=== PATIENT | female | born 1995 | race Caucasian/White ===

== ENCOUNTER 2017-01-04 20:04 | Emergency (ER) | payer OTHER ==
[2017-01-04] MEDS ORDERED: ONDANSETRON 4 MG/2 ML VIAL ONE (20:58)
[2017-01-04] MEDS ORDERED: ONDANSETRON 4 MG/2 ML VIAL IVP ONE ×2 (21:05→21:41)
[2017-01-04] MEDS ORDERED: NORMAL SALINE 10 ML SYRINGE FLUSH IVP PRN (21:05)
[2017-01-04] MEDS ORDERED: Sodium Chloride 0.9% 1,000 ML PRIMARY IV ONE (21:05)
[2017-01-04 21:14] LABS: BASOPHILS # (AUTO) 0.01 10*3/UL; BASOPHILS % (AUTO) 0.2 % (0-1); EOSINOPHILS # (AUTO) 0 10*3/UL; EOSINOPHILS % (AUTO) 0 % (0-8); HEMATOCRIT 41.9 % (37.0-47.0); HEMOGLOBIN 13.7 g/dL (12.0-16.0); LYMPHOCYTES # (AUTO) 0.82 10*3/uL; MEAN CORPUSCULAR HEMOGLOBIN 25.1 PG (27-31); MEAN CORPUSCULAR HGB CONC 32.7 g/dL (33-37); MEAN CORPUSCULAR VOLUME 76.7 FL (81-99); MEAN PLATELET VOLUME 10.4 FL (7.4-12.2); MONOCYTES # (AUTO) 0.27 10*3/UL (0.3-0.8); MONOCYTES % (AUTO) 4.6 % (5-15); NEUTROPHILS # (AUTO) 4.76 10*3/UL; PLATELET MORPHOLOGY COMMENT NORMAL MORPHOLOGY (NORM); RBC MORPHOLOGY COMMENT NORMAL MORPHOLOGY (NORM); RED BLOOD COUNT 5.46 10^6/uL (4.20-5.40); WBC MORPHOLOGY COMMENT NORMAL MORPHOLOGY (NORM)
[2017-01-04 21:20] LABS: BLOOD UREA NITROGEN 14 mg/dL (7-22); CALCIUM 9.6 mg/dL (8.7-10.7); EST GLOMERULAR FILTRATION > 60 (>60 ml/min/1.73m(2)); SERUM ALBUMIN 4.9 g/dL (3.5-4.8)
[2017-01-04] MEDS ORDERED: Famotidine Inj 20 MG in Normal Saline Flush 10 ML IVP ONE (21:40)
[2017-01-04] MEDS ORDERED: FAMOTIDINE 20 MG/2 ML VIAL IVP ONE (21:46)
[2017-01-04 21:59] LABS: BILIRUBIN,URINE SMALL (NEG); CLARITY,URINE CLEAR (CLEAR); COLOR,URINE YELLOW; GLUCOSE, URINE (UA) NEGATIVE (NEG); NITRATE,URINE NEGATIVE (NEG); OCCULT BLOOD,URINE NEGATIVE (NEG); PROTEIN,URINE >300 mg/dl (NEG)
[2017-01-04 22:01] LABS: URINE SAMPLE TYPE CLEAN CATCH URINE; URINE SPECIFIC GRAVITY - MAN 1.025
[2017-01-04 22:06] LABS: BACTERIA,URINE RARE; RBC,URINE 0 /hpf; SQUAMOUS EPITHELIAL CELL,UR FEW; WBC,URINE 0
[2017-01-04 22:15] LABS: AMPHETAMINE SCREEN NEGATIVE (NEG); CANNABINOID SCREEN,URINE NEGATIVE (NEG); COCAINE SCREEN NEGATIVE (NEG); METHADONE URINE SCREEN NEGATIVE (NEG); METHAMPHETAMINES SCREEN,URINE NEGATIVE (NEG); OPIATE SCREEN,URINE NEGATIVE (NEG)
[2017-01-04] MEDS ORDERED: PROMETHAZINE 25 MG/1 ML VIAL IM ONE (22:15)
--- NOTE | 2017-01-04 23:56 | EKG ---
[address] [address] Measurements Intervals [place] Rate: 68 P: -28 [place]: 147 QRS: 35 QRSD: 92 T: 6 QT: 435 QTc: 452 Interpretive Statements SINUS RHYTHM INTERPRETATION BASED ON A DEFAULT AGE OF 40 YEARS Compared to ECG 09/24/2015 08:51:40 No significant changes Electronically Signed On 01-07-17 10:10:40 MDT by Eagle Figueredo MD [email or web address]
--- NOTE | 2017-01-05 00:56 | DI ---
HISTORY: Vomiting. COMPARISON: 02/17/2014. TECHNIQUE: Contiguous axial images of the abdomen and pelvis were obtained and submitted for interpr etation. FINDINGS: The wall of the descending colon and rectum is thickened, though incompletely distended. Hollow viscus organs demonstrate normal course and caliber. The appendix is within normal limits. T here is no intraperitoneal free air or fluid. Normal CT appearance of the liver, gallbladder, pancreas, spleen, kidneys, and adrenal glands. Urete rs and bladder are unremarkable. No radiopaque renal or collecting system calculi. No evidence of o bstructive uropathy. Vascular structures are intact. No abdominopelvic lymphadenopathy is present. The uterus and adnexa are unremarkable, though better evaluated with pelvic ultrasound. There is no inguinal or umbilical hernia. The lung bases are clear. Osseous structures are within normal limits for age. IMPRESSION: 1. The wall of the descending colon and rectum is thickened, though incompletely distended. Although this could represent pseudothickening, an inflammatory or infectious process could cause a similar a ppearance. Follow-up to resolution is recommended if endoscopic correlation is not performed.
[2017-01-05] MEDS ORDERED: Ondansetron ODT Tab 8 MG TAB PO ONE (02:36)
[2017-01-05] MEDS ORDERED: Ondansetron ODT Tab 8 MG TAB PO SCH (02:50)
[2017-01-05 04:21] VITALS: RESP 16; TEMP 97.4
--- NOTE | 2017-01-05 07:25 | PDOC ---
Nausea/Vomiting/Diarrhea HPI - General Chief Complaint: General Medical Stated Complaint: possible seizure, nausea and vomiting Date Seen by Provider: 01/04/17 Time Seen by Provider: 20:45 Source: POSITIVE: Patient, Other (Mother and grandmother) Exam Limitations: POSITIVE: No limitations Nurse's Notes Reviewed & Considered: Yes - History of Present Illness Initial Comments: The patient is a 21-year-old female. Patient has a long-standing history of probable seizure disorder. The patient's mother and grandmother, who accompany the patient to the emergency room, states that she has been diagnosed with epilepsy. Patient also is mildly mentally challenged. Patient was staying with a person in [place]. The patient's guardian is her grandmother. Last night the patient reported that she ran away from the residence at which she was staying in [place] and made her way to her mother's house. Around 6:30 PM she was eating at [employer] [employer] and reportedly, according to the patient's mother, , "curled up into a ball "and began "shaking all over". This activity lasted approximately 2 minutes according to the mother. Patient has also had some vomiting this afternoon. Mother called the ambulance and the ambulance brought her to the emergency room. Patient takes Vimpat for her seizures along with Onfi, but she left these medications in [place], and so she is been without her seizure medications for at least 24 hours. Patient complains of some vague abdominal discomfort. No diarrhea. No fevers. Patient was not postictal following the above motor activity. No head or chest pain. No melena, diarrhea , hematochezia, hematemesis, dysuria or hematuria. Body Location Affected: REPORTS: Abdomen, Other (As above) Timing: REPORTS: Abrupt Duration: 1-3 hours Severity: Moderate Quality: REPORTS: "Pain" (Mild lower abdominal discomfort) Abdominal Pain Onset Location: REPORTS: RLQ, LLQ Abdominal Pain Radiation: REPORTS: No radiation Context: DENIES: None, Activity, Bending, Coughing, Fall, Lifting, Near Fall, Rest, Sitting, Sleep, Standing, Turning, Emotional stress, Camping, Bad Food, Out of Country Travel, Other, Recent Surgery, Recent Trauma Modifying Factors: improves with: Vomiting Associated Symptoms: REPORTS: Vomiting, Other (Possible seizures) Similar Symptoms Previously: Yes (long-standing history of seizure disorder) Recent Care Received: REPORTS: Denies Any Prior Injuries Related to Current Complaint?: No - Patient Home Medications Home Medications: Home Medications Lamotrigine [Lamictal] 250 mg PO BID 05/18/14 Lacosamide [Vimpat] 200 mg PO BID tab 06/09/14 Escitalopram Oxalate [Lexapro] 20 mg PO DAILY #30 tab 07/26/14 QUEtiapine Tab [SEROquel Tab] 50 mg PO EVERY AM 08/09/15 QUEtiapine Tab [SEROquel Tab] 200 mg PO BEDTIME 08/09/15 Lisinopril 5 mg PO DAILY #30 tab 12/31/15 Docusate Sodium 250 mg PO DAILY #30 cap 01/10/16 Medroxyprogesterone Acet [Depo-Provera] 150 mg IM MONTHLY 03/09/16 Lansoprazole 1 cap PO BID #60 cap 03/26/16 Clobazam [Onfi] 20 mg PO BID 01/04/17 - Patient Allergies Allergies/Adverse Reactions: Allergies Allergy/AdvReac Type Severity Reaction Status Date / Time amoxicillin trihydrate Allergy Severe siezures Verified 01/04/17 21:37 [From Augmentin] potassium clavulanate Allergy Severe siezures Verified 01/04/17 21:37 [From Augmentin] risperidone [From Risperdal] Allergy Intermediate HIVES Verified 01/04/17 21:37 Penicillins Allergy HIVES Verified 01/04/17 21:37 Past Medical History - heen HEENT History: Other (please comment) Additional HEENT History: WEARS GLASSES Cardiovascular History: Hypertension Respiratory History: Denies History Gastrointestinal History: GERD, Pancreatitis, Other (please comment) Additional Gastrointestinal History: CONSTIPATION Genitourinary History: Denies History Endocrine History: Denies History Musculoskeletal History: Denies History Prosthesis or Implant: No Neurological History: Seizures Additional Neurological History: grandmother reports frequent seizure activity recently and is scheduled to with neurologist for eeg Blood Disorders: Denies History Psychiatric History: Depression, Anxiety Disorders, ADD, PTSD Additional Psychiatric History: REACTIVE DETACHMENT DISORDER, MOOD DISORDER, MILD MR History of Sexually Transmitted Diseases: No Cancer History: Denies History In Past Year Been Physically Harmed or Verbally Threatened: No History of MDRO: No History of Other Communicable Diseases: No Tobacco Use: Never Smoker Alcohol Use: None Substance Use Type: None Previous Surgical History: No Anesthesia Reactions: No Malignant Hyperthermia: No Significant Family History: Heart disease, Cancer, Hypertension Past Medical History Reviewed: Reviewed - No Changes ROS - Limitations ROS Limitations: No Limitations Constitution: REPORTS: Denies Symptoms Cardiovascular: REPORTS: Denies Cardiac Symptoms Respiratory: REPORTS: Denies Resp Symptoms Neurological: REPORTS: Seizure Activity Gastrointestinal: REPORTS: Nausea, Vomitting Endocrine: REPORTS: Denies Symptoms Musculoskeletal: REPORTS: Denies MS Symptoms Genitourinary: REPORTS: Denies Symptoms Eyes: REPORTS: Denies Symptoms ENT: REPORTS: Denies Symptoms Skin: REPORTS: Denies Skin Symptoms Lympathic: REPORTS: Denies Lympathic Symptoms Immunologic: POSITIVE: Denies Symptoms Psychiatric: POSITIVE: Denies Psych Symptoms Nausea/Vomiting/Diarrhea Exam - General Appearance General Appearance: POSITIVE: Alert, Cooperative, No Acute Distress, No Evidence of Trauma - HEENT HEENT: POSITIVE: Head Inspection Nml, Eyes Inspection Nml, Ears Inspection Nml, Nose Inspection Nml, Oral/Dental Inspect. Nml, Pharynx Inspect. Nml, PERRL, EOMI - Neck Neck: POSITIVE: Supple, Normal Inspection, Non Tender - Respiratory Respiratory: POSITIVE: No Respiratory Distress, Breath Sounds Normal, Chest Non- Tender - Cardiovascular Cardiovascular: POSITIVE: Regular Rate and Rhythm, Heart Sounds Normal, Equal Pulses, Strong Pulses Peripheral Pulses: Radial (R): 2+, Radial (L): 2+ - Chest Chest: POSITIVE: Non Tender - Abdomen Abdomen: Soft: (All Quadrants), Normal Bowel Sounds: (All Quadrants), Denies Tenderness: (RUQ), (LUQ), No Splenomegaly: (All Quadrants), No Hepatomegaly: ( All Quadrants), No Guarding: (All Quadrants), No Rebound: (All Quadrants), No Palpable Pulse: (All Quadrants), No Palpabale Mass: (All Quadrants), No Distention: (All Quadrants), No Rigidity: (All Quadrants), Tenderness Noted: ( RLQ), (LLQ) Additional Abdominal Details: Abdominal examination shows bowel sounds to be active. Some mild vague discomfort on firm palpation paraumbilically. No masses, organomegaly or rebound. - Back Back: POSITIVE: Normal Inspection - Skin Skin: POSITIVE: Intact, Normal For Race, Warm, Dry, No Rash - Extremities Extremity: Non-Tender: (All Extremities), Normal ROM: (All Extremities), Normal Inspection: (All Extremities) - Neurological / Psychological Neurological: POSITIVE: Oriented X3, tallier Normal As Tested, Motor Normal, Sensation Normal, 5, 6 Images - Complete Complete: 1 - Mild 40 localized discomfort expressed on firm deep direct palpation. N/V/D Progress - Results Reviewed by me Xrays/CTs/US Reviewed by me: Yes Discussed with Radiologist: Yes Radiology Findings: CT scan abdomen and pelvis with IV contrast normal. Lab Results Reviewed: Yes Lab Results:: Laboratory Results 01/04/17 01/04/17 Range/Units 20:11 22:00 WBC 5.87 (4.8-10.8) 10^3/uL RBC 5.46 H (4.20-5.40) 10^6/uL Hgb 13.7 (12.0-16.0) g/dL Hct 41.9 (37.0-47.0) % MCV 76.7 L (81-99) FL MCH 25.1 L (27-31) PG MCHC 32.7 L (33-37) g/dL RDW Std Deviation 41.0 (39-50) fL RDW Coeff of [place] 14.9 H (11.5-14.5) % Plt Count 239 (140-350) 10*3/uL MPV 10.4 (7.4-12.2) FL Immature Gran % (Auto) 0.2 (0-5) % Neut % (Auto) 81.0 H (50-80) % Lymph % (Auto) 14.0 (10-50) % [place] % (Auto) 4.6 L (5-15) % Eos % (Auto) 0 (0-8) % Baso % (Auto) 0.2 (0-1) % Immature Gran # (Auto) 0.01 10*3/UL Neut # (Auto) 4.76 10*3/UL Lymph # (Auto) 0.82 10*3/uL [place] # (Auto) 0.27 L (0.3-0.8) 10*3/UL Eos # (Auto) 0 10*3/UL Baso # (Auto) 0.01 10*3/UL WBC Morphology Comment Normal morphology (NORM) Plt Morphology Comment Normal morphology (NORM) RBC Morph Comment Normal morphology (NORM) Sodium 144 (135-145) meq/L Potassium 4.2 (3.8-5.2) meq/L Chloride 107 (98-112) meq/L Carbon Dioxide 23 (23-33) meq/L Anion Gap 14 (5-20) BUN 14 (7-22) mg/dL Creatinine 0.7 (0.50-1.20) mg/dL Estimated GFR > 60 (>60 ml/min/1.73m(2)) BUN/Creatinine Ratio 20.00 (6-20) Glucose 118 H (78-110) mg/dL Calculated Osmolality 299.0 H (267-292) mOsm/kg Calcium 9.6 (8.7-10.7) mg/dL Total Bilirubin 0.6 (0.3-1.2) mg/dL AST 55 H (8-39) IU/L ALT 27 (9-52) IU/L Alkaline Phosphatase 101 (38-126) IU/L Total Protein 8.6 H (6.1-8.0) g/dL Albumin 4.9 H (3.5-4.8) g/dL Globulin 3.7 (2.50-4.10) g/dL Albumin/Globulin Ratio 1.30 (1.3-2.0) mg/g Serum HCG, Qual Negative Ur Collection Type Clean catch urine Urine Color Yellow Urine Clarity Clear (CLEAR) Urine pH 7.0 (5.0-8.5) Ur Specific [place] 1.025 (1.005-1.030) U Specif Grav (Refrac) 1.025 Urine Protein >300 (NEG) mg/dl Urine Glucose (UA) Negative (NEG) mg/dL Urine Ketones >=160 (NEG) Urine Occult Blood Negative (NEG) Urine Nitrate Negative (NEG) Urine Bilirubin Small (NEG) Urine Urobilinogen 1.0 (0.2) EU/dL Ur Leukocyte Esterase Negative (NEG) Urine RBC 0 (NONE) /hpf Urine WBC 0 (NONE) Ur Squamous Epith Cells Few (NONE) Ur Renal Epithelial Cell None (NONE) Urine Crystals None Urine Bacteria Rare (NONE) Urine Casts None (NONE) Urine Mucus Moderate (NONE) Urine Trichomonas None (NONE) Urine Yeast None (NONE) Ur Culture Indicated? Culture not set Urine Opiates Screen Negative (NEG) Ur Buprenorphine Negative (NEG) Ur Oxycodone Screen Negative (NEG) Urine Methadone Screen Negative (NEG) Ur Propoxyphene Screen Negative (NEG) Barbiturate Screen Negative (NEG) U Tricyclic Antidepress Negative (NEG) Phencyclidine Screen Negative (NEG) Amphetamines Screen Negative (NEG) U Methamphetamines Scrn Negative (NEG) Benzodiazepines Screen Positive H (NEG) Cocaine Screen Negative (NEG) U Marijuana (THC) Screen Negative (NEG) - Patient's Progress Pain Medication Addressed: POSITIVE: Not Applicable School/Work Release Addressed: POSITIVE: Not Applicable Re-examine Time: 23:00 Re-Examine Comment: Patient hydrated with approximately 2 L of normal saline and patient given Zofran, 4 mg IV 2. His vomited 3 or 4 times in the emergency room. Re-Examine Time:: 02:00 Re-Examine Comment: CT scan abdomen and pelvis with IV contrast probably normal. Patient given Phenergan 50 mg IM. Patient is asymptomatic on discharge. Vimpat and Onfi given and quantities sufficient for 2 days; this should give the patient plenty a time to retrieve her medications from [facility]. Status: POSITIVE: Improved, Re-Examined - Consult Counseled: POSITIVE: Patient, Family, RE: Lab Results, RE: Radiology Results, RE : DX, RE: Need for F/U Patient Care Time - Estimated PCT Patient Care Time (In Minutes): 65 Vital Signs - VS Reviewed Vital Signs Reviewed: Yes Discharge Clinical Impression: Nausea and vomiting, Seizure, partial Discharge Disposition: Discharged to Home Condition: Stable Patient Instructions Given at Discharge: Epilepsy (ED), Acute Nausea and Vomiting (ED) Additional Instructions: Sure you continue your medications for seizures. Eyes given you enough Vimpat and Onfi for 2 days; this will give you time to get sure medications from [facility]. Clear liquid diet for 12 hours. Zofran, one every 4-6 hours as necessary for nausea and vomiting. Return here anytime if condition worsens. Follow-up with your neurologist and primary care provider. Follow Up With: NONE,NONE [Primary Care Provider] - (Instructions as above. Follow-up with your neurologist and primary care provider. Return here anytime if condition worsens.)
== END 2017-01-05 02:53 | disposition home or self-care (01) ==
LOC: ER 20:04
DX: G40.802 Other epilepsy, not intractable, without status epilepticus (principal); R11.2 Nausea with vomiting, unspecified
CPT/HCPCS: 74177; 80053; 80305; 81001; 81003; 84703; 85025; 93005; 93010; 96361; 96374; 96375; 96376; 99284 ×2; Q0162; J2405; J2550

== ENCOUNTER → 2017-01-09 | Outpatient (CLI) | payer OTHER | LOC: MOB LAB 15:10 | PROVIDERS: ATTEND Nurse Practitioner Family | DX: N89.8 Other specified noninflammatory disorders of vagina (principal) | CPT/HCPCS: 87480; 87510; 87660 ==